=== PATIENT | male | born 1930 | race Caucasian/White ===

== ENCOUNTER 2016-08-31 09:08 | Emergency (ER) | payer OTHER, MEDICARE ==
[~2016-08-31] VITALS: Ht 167.6 cm; Wt 88.9 kg
[~2016-08-31 09:08] MED LIST: MOBIC15 MG PO; NORFLEX100 MG PO
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
--- NOTE | 2016-08-31 11:13 | RADIOLOGY REPORT ---
EXAMINATION: XR ELBOW, RIGHT CLINICAL INFORMATION: History of fall, complaining of pain involving the right elbow. COMPARISON: None TECHNIQUE: AP, lateral, and oblique views of the right elbow. FINDINGS: There is a subtle cortical radiolucency identified involving the articular surface of the head of the right radius. Both anterior as well as posterior fat pads are also visualized (see the rodriguez images). The findings are consistent with subtle nondisplaced radial head fracture. Follow-up CT scan may be considered for further confirmation, if clinically appropriate. Evidence of enthesopathy is noted overlying both medial as well as lateral epicondyle. The remainder of the visualized bones appear unremarkable. 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 IMPRESSION: Evidence of joint effusion and subtle cortical radiolucency involving the articular surface of the radial head, consistent with subtle nondisplaced radial head fracture. Follow-up CT scan may be considered for further confirmation, if clinically appropriate.
[2016-08-31 11:20] VITALS: BP 140/80
== END 2016-08-31 11:59 ==
LOC: ERH 09:08
DX: S52.124A Nondisplaced fracture of head of right radius, initial encounter for closed fracture (principal); W19.XXXA Unspecified fall, initial encounter; Y93.01 Activity, walking, marching and hiking; Y92.017 Garden or yard in single-family (private) house as the place of occurrence of the external cause
CPT/HCPCS: 73080-RT